=== PATIENT | male | born 1930 | race Caucasian/White ===

== ENCOUNTER 2018-07-19 15:43 | Emergency (ER) ==
[2018-07-19 15:47] VITALS: TEMP 99.3
[2018-07-19] MEDS ORDERED: TRANDATE 100 MG in SODIUM CHLORIDE 80 ML IV SCH (16:00)
--- NOTE | 2018-07-19 16:01 | ED.PDOC ---
General Stated Complaint: Headache-Lt Temporal Mandibular region.Denies visual abnormalities Time Seen by Physician: 16:05 Mode of Arrival: Walk-In Information Source: Patient Exam Limitations: No limitations Nursing and Triage Documentation Reviewed and Agree: Yes Does patient meet sepsis criteria?: No System Inflammatory Response Syndrome: Not Applicable <MYNOR SHORT - Last Filed: 07/19/18 19:28> <ALBINA MITCHELL - Last Filed: 07/19/18 20:01> ED Provider: Dr. ALBINA MITCHELL Chief Complaint: Headache Sepsis Protocol: For patient's 13 years and over: Temp is 96.8 and below OR 101 and greater Pulse >90 BPM Resp >20/minute Acutely Altered Mental Status Are patient's symptoms suggestive of a new infection, such as: -Pneumonia -Skin, Soft Tissue -Endocarditis -UTI -Bone, Joint Infection -Implantable Device -Acute Abdominal Infection -Wound Infection -Meningitis -Blood Stream Catheter Infection -Unknown Cardiovascular Complaint Exam - Hypertension Complaint/Exam Onset/Duration: 24 hrs Symptoms Are: Still present Timing: Constant Aggravating: Reports: Exertion Alleviating: Reports: None Associated Signs and Symptoms: Reports: Headache Related History: Reports: Similar episode Related Surgical History: Reports: None Cardiac Risk Factors: Reports: Hypertension Recent Change in Medications: No Carotid Bruit Present: No Femoral Pulses Bounding: No Differential Diagnoses: Hypertensive Urgency <MYNOR SHORT - Last Filed: 07/19/18 19:28> - Chest Pain Complaint/Exam Duration: today Symptoms Are: Resolved Timing: Intermittent Length of Chest Pain Episodes: several hours improved with optimization of blood pressure Initial Severity: Moderate Current Severity: None Location: Reports: Lower sternal Pain Radiates: Reports: Epigastrium Character: Reports: Aching Aggravating: Reports: None Alleviating: Reports: Rest, Upright position Related Surgical History: Reports: None History of Healthcare-Acquired Pneumonia: Reports: No AMI/ACS Risk Factors: Reports: Hypertension TAD Risk Factors: Reports: Hypertension Pulmonary Embolism Risk Factors: Reports: None Prior Care for this Complaint: No Recent Stress Test: No Recent Echo/LV Function: No JVD Present: No Subcutaneous Emphysema Present: No Diminshed Breath Sounds: No Reproducible Chest Wall Pain: No Bilateral Pulses Present: No Unequal Pulses Noted: No If Risk Factors for AMI/ACS Consider: EKG, Cardiac Enzymes If Risk Factors for TAD Consider: Blood pressure control Documents Reviewed: EKG Differential Diagnoses: Stable Angina, Chest Wall Pain, Lower Resp. Infection Quality Indicator For Non-Traumatic Chest Pain/Syncope: EKG Performed Patient Advised to Stop Smoking: Yes <ALBINA MITCHELL - Last Filed: 07/19/18 20:01> Review of Systems - Review Of Systems Constitutional: Reports: No symptoms Eyes: Reports: No symptoms Ears, Nose, Mouth, Throat: Reports: No symptoms Respiratory: Reports: No symptoms Cardiac: Reports: No symptoms GI: Reports: No symptoms : Reports: No symptoms Musculoskeletal: Reports: No symptoms Skin: Reports: No symptoms, Dryness Neurological: Reports: No symptoms, Headache Endocrine: Reports: No symptoms Hematologic/Lymphatic: Reports: No symptoms All Other Systems: Reviewed and Negative <MYNOR SHORT - Last Filed: 07/19/18 19:28> Past Medical History - Past Medical History Previously Healthy: Yes Endocrine: Reports: None Cardiovascular: Reports: None Respiratory: Reports: None Hematological: Reports: None Gastrointestinal: Reports: None Genitourinary: Reports: None Neuro/Psych: Reports: None Musculoskeletal: Reports: None Cancer: Reports: None Other Pertinent Past Medical History: prev took meds several years ago - Surgical History General Surgical History: Reports: None - Family History Family History: Reports: None - Social History Smoking Status: Chews tobacco Hx Substance Use: No Alcohol Screening: None - Immunizations Tetanus Shot up to Date: No <MYNOR SHORT - Last Filed: 07/19/18 19:28> Physical Exam - Physical Exam Appearance: Well-appearing, Well-nourished Ill-appearing: Mild Pain Distress: Mild Eyes: ALIYAH, Conjunctiva pale ENT: Ears normal, Nose normal, Oropharynx normal Neck: Supple Respiratory: Airway patent Cardiovascular: RRR, Pulses normal, No rub, No murmur GI/: Soft, Nontender, No masses, Bowel sounds normal, No Organomegaly Musculoskeletal: Normal strength, ROM intact, No edema, No calf tenderness Skin: Warm, Dry, Normal color Neurological: Sensation intact, Motor intact, Reflexes intact, Cranial nerves intact, Alert, Oriented Psychiatric: Affect appropriate, Mood appropriate <MYNOR SHORT - Last Filed: 07/19/18 19:28> Physician Notification - Case Discussed Physician Notified: ALBINA MITCHELL-discussed case-goal of BP control and discharge Time of Notification: 18:55 (Evening ER Physician ankush mcdonald) Physician Notified: Patient prefers discharge to home if possible <MYNOR SHORT - Last Filed: 07/19/18 19:28> Critical Care Note - Critical Care Note Total Time (mins): 0 <ALBINA MITCHELL - Last Filed: 07/19/18 20:01> Course - Course Hematology/Chemistry: 07/19/18 16:08 07/19/18 16:08 <MYNOR SHORT - Last Filed: 07/19/18 19:28> - Course Hematology/Chemistry: 07/19/18 16:08 07/19/18 16:08 <ALBINA MITCHELL - Last Filed: 07/19/18 20:01> - Course Orders, Labs, Meds: Lab Review 07/19/18 07/19/18 07/19/18 15:55 16:08 16:08 WBC 9.28 RBC 5.35 Hgb 16.5 Hct 49.9 MCV 93.3 MCH 30.8 MCHC 33.1 RDW Coeff of Nawaf 13.1 Plt Count 190 Immature Gran % (Auto) 0.9 Neut % (Auto) 67.9 Lymph % (Auto) 19.4 [place] % (Auto) 9.8 Eos % (Auto) 1.6 Baso % (Auto) 0.4 Immature Gran # (Auto) 0.1 Neut # (Auto) 6.3 Lymph # (Auto) 1.8 [place] # (Auto) 0.9 Eos # (Auto) 0.2 Baso # (Auto) 0.0 ESR 2 Sodium 140.9 Potassium 3.95 Chloride 104.5 Carbon Dioxide 27.1 Anion Gap 13.25 BUN 18.0 Creatinine 1.41 H Estimated GFR (MDRD) 48.00 BUN/Creatinine Ratio 12.76 Glucose 112.0 H Calcium 8.71 Magnesium 1.98 Total Bilirubin 0.38 AST 25.8 ALT 26.0 Alkaline Phosphatase 67.4 Troponin I Total Protein 7.45 Albumin 4.44 Globulin 3.01 Albumin/Globulin Ratio 1.47 07/19/18 16:08 WBC RBC Hgb Hct MCV MCH MCHC RDW Coeff of Nawaf Plt Count Immature Gran % (Auto) Neut % (Auto) Lymph % (Auto) [place] % (Auto) Eos % (Auto) Baso % (Auto) Immature Gran # (Auto) Neut # (Auto) Lymph # (Auto) [place] # (Auto) Eos # (Auto) Baso # (Auto) ESR Sodium Potassium Chloride Carbon Dioxide Anion Gap BUN Creatinine Estimated GFR (MDRD) BUN/Creatinine Ratio Glucose Calcium Magnesium Total Bilirubin AST ALT Alkaline Phosphatase Troponin I < 0.012 Total Protein Albumin Globulin Albumin/Globulin Ratio Orders Category Date Time Status EKG-(ED ONLY) Stat CARDIO 07/19/18 15:57 Completed CBC W/ AUTO DIFF Stat LAB 07/19/18 16:08 Completed CMP [COMPREHENSIVE METABOLIC PANEL] Stat LAB 07/19/18 16:08 Completed ESR Stat LAB 07/19/18 15:55 Completed MAGNESIUM Stat LAB 07/19/18 16:08 Completed TROPONIN I Stat LAB 07/19/18 16:08 Completed 0.9 % Sodium Chloride [Sodium Chloride] 80 ml MEDS 07/19/18 16:00 Active Labetalol HCl [Trandate] 100 mg IV 2 mg/min Acetaminophen [Tylenol] MEDS 07/19/18 17:27 Discontinued 650 mg PO ONCE STA Labetalol HCl [Trandate] MEDS 07/19/18 18:37 Discontinued 100 mg PO ONCE STA CHEST, 2 VIEWS PA & LAT Stat RADS 07/19/18 17:[address] HEAD W/O CONTRAST Stat RADS 07/19/18 17:43 Taken Medications Generic Name Dose Route Start Last Admin Trade Name Freq PRN Reason Stop Dose Admin Labetalol HCl 100 mg/ Sodium 100 mls @ 120 mls/hr 07/19/18 16:00 07/19/18 16: 51 Chloride IV 0 mg/min .Q50M DENISE 0 mls/hr Titration Protocol 2 MG/MIN Discontinued Medications Generic Name Dose Route Start Last Admin Trade Name Freq PRN Reason Stop Dose Admin Acetaminophen 650 mg 07/19/18 17:27 07/19/18 17:34 Tylenol PO 07/19/18 17:28 650 mg ONCE STA Administration Labetalol HCl 100 mg 07/19/18 18:37 07/19/18 18:57 Trandate PO 07/19/18 18:38 100 mg ONCE STA Administration Vital Signs: Temp Pulse Resp BP Pulse Ox 07/19/18 16:51 71 18 148/82 H 07/19/18 16:22 83 18 186/100 H 07/19/18 15:44 99.3 F 86 16 250/109 H 94 L MICHEAL Risk Score: Risk Score Odds of by 30D 0 0.1 (0.1-0.2) 1 0.3 (0.2-0.3) 2 0.4 (0.3-0.5) 3 0.7 (0.6-0.9) 4 1.2 (1.0-1.5) 5 2.2 (1.9-2.6) 6 3.0 (2.5-3.6) 7 4.8 (3.8-6.1) Departure <MYNOR SHORT - Last Filed: 07/19/18 19:28> - Departure Time of Disposition: 19:58 Pt referred to PMD for follow-up: Yes (follow with PCP 3 days take meds and cont.) IPMP verified?: No Disposition Discussed With: Patient <ALBINA MITCHELL - Last Filed: 07/19/18 20:01> - Departure Disposition: HOME SELF-CARE Discharge Problem: Hypertension Instructions: Hypertension (ED) Condition: Good Prescriptions: Labetalol HCl [Trandate] 100 mg PO BID #30 tablet Allergies/Adverse Reactions: Allergies No Known Allergies Allergy (Unverified 07/19/18 15:47) Home Medications: Ambulatory Orders Aspirin [[place] Chewable] 81 mg PO DAILY 07/19/18 Labetalol HCl [Trandate] 100 mg PO BID #30 tablet 07/19/18
[2018-07-19] MEDS ORDERED: TYLENOL PO PRN (16:20)
[2018-07-19 16:52] VITALS: BP 148/82
[2018-07-19] MEDS ORDERED: TYLENOL PO STA (17:27)
[2018-07-19] MEDS ORDERED: TRANDATE PO STA (18:37)
--- NOTE | 2018-07-20 05:24 | DI ---
EXAM: Two-view chest HISTORY: Hypertension COMPARISON: None. FINDINGS: The heart is normal in size. Atherosclerotic changes are seen involving the aortic arch. There are benign granulomatous changes without evidence of active pulmonary disease. IMPRESSION: Benign granulomatous changes without evidence of active pulmonary disease.
--- NOTE | 2018-07-20 05:24 | CT ---
Exam: Head CT. Date: 07/19/2018. Comparison: None. HISTORY: Left-sided facial pain. TECHNIQUE: Helical scan of the brain was performed. FINDINGS: The calvarium is intact. There is opacification of the left maxillary sinus and multiple bilateral ethmoid air cells. Remaining paranasal sinuses and mastoid air cells are clear. There is mild cerebral and cerebellar volume loss with decreased attenuation in the periventricular w griselda matter. No abnormal intra or extra-axial fluid, mass or mass effect is present. There is no mi dline shift or hydrocephalus. No large vessel infarct or hemorrhage is observed. Bui-white interfa ce is maintained. Impression: No acute intracranial findings. Senescent changes with chronic microvascular disease. Opacification of the left maxillary sinus and multiple ethmoid air cells which could represent acute and/or chronic pansinusitis.
== END 2018-07-19 20:12 | disposition home or self-care (01) ==
LOC: ED 15:43
DX: R51 Headache (principal); I10 Essential (primary) hypertension; Z72.0 Tobacco use
CPT/HCPCS: 36415; 80053; 83735; 84484; 85025; 85651; 93005; 93010; 96365; 99284

== ENCOUNTER 2018-07-30 12:00 | Outpatient (CLI) | payer OTHER | END 2018-07-30 12:01 | disposition home or self-care (01) | LOC: LAB 12:00 | PROVIDERS: ATTEND Ophthalmology | DX: M31.6 Other giant cell arteritis (principal) | CPT/HCPCS: 36415; 85651; 86140 ==

== ENCOUNTER 2018-09-28 15:22 | Inpatient (IN) ==
[2018-09-28] MEDS ORDERED: ATROPINE SULFATE PFS IVP PRN (15:39)
[2018-09-28] MEDS ORDERED: NITROSTAT SL PRN (15:39)
[2018-09-28] MEDS ORDERED: TYLENOL PO PRN (15:39)
[2018-09-28] MEDS ORDERED: VISTARIL INJ IM PRN (15:39)
[2018-09-28 15:57] VITALS: BMI 31.0
[2018-09-28] MEDS ORDERED: BACTROBAN OINTMENT 1 GRAM APPLICATOR (ER) TP SCH (16:00)
--- NOTE | 2018-09-28 16:49 | DI ---
EXAM: CHEST FRONTAL VIEW HISTORY: EXAM: CHEST FRONTAL VIEW HISTORY: Shortness breath. COMPARISON: 07/19/2018 FINDINGS: Mild cardiac enlargement is stable. There is at least mild atherosclerotic disease. Dede ot exclude subtle central vascular congestion. No noticeable interstitial edema, consolidated pneumo emerita, pneumothorax or pleural fluid IMPRESSION: 1. Mildly prominent heart size. Possible subtle vascular congestion.
--- NOTE | 2018-09-28 17:20 | US ---
Exam: Bilateral renal ultrasound Technique: Real time mark-scale and color-flow Doppler ultrasound of the bilateral kidneys and urinar y bladder was performed HISTORY: Hypertension COMPARISON: None. FINDINGS: The right kidney measures 10.5 x 5.2 x 4.2 cm and the left kidney measures 10.8 x 5.8 x 4.3 cm. Kidne ys demonstrate diffusely increased echotexture bilaterally. There are no stones and there is no hydr onephrosis. No suspicious renal masses are seen. There is a 1-2 cm cyst seen in the left kidney. Blo od flow appears normal. Cortical thickness on the right is 0.8 cm and on the left 0.9 cm. Cortical m edullary differentiation is within normal limits. The bladder is unremarkable. Ureteral jets are not seen. Bladder wall thickness is 0.5 cm. IMPRESSION: 1. Bilaterally increased echotexture of the kidneys consistent with medical renal disease. 2. Left renal cyst.
--- NOTE | 2018-09-28 17:23 | US ---
Exam: Bui-scale and color Doppler duplex ultrasonographic evaluation of the carotid arteries. Spec tral waveform analysis. Comparison: None available. Reason for exam: High blood pressure with headache. FINDINGS: Atherosclerotic disease is seen in both the left and right internal carotid arteries. Right ECA measures 178 cm/sec Right CCA 60 cm/sec Right internal carotid artery peak systolic velocity 110 cm/sec. Right internal carotid artery/CCA PSV ratio 1.8 Internal carotid artery end-diastolic velocity 27 cm/sec. There is antegrade right vertebral artery flow. Left ECA 120 cm/sec Left CCA 69 cm/sec Left internal carotid artery peak systolic velocity 83 cm/sec. Left internal carotid artery/CCA PSV ratio 1.2 Left internal carotid artery end-diastolic velocity 19 cm/sec. There is antegrade left vertebral artery flow. Impression: No ultrasonographic evidence of significant stenotic disease is seen by peak systolic velocity measur ements in either the right or left internal carotid arteries. Vertebral artery flow is antegrade bilaterally.
[2018-09-28] MEDS: BACTROBAN TP SCH ×2 (17:39→21:05)
--- NOTE | 2018-09-28 17:39 | CT ---
EXAM: CT scan brain without contrast HISTORY: Headache COMPARISON: CT scan brain 07/19/2018 FINDINGS: Contiguous axial images obtained from skull base to the convexities without contrast utili zing 5-mm collimation. Sagittal and coronal reconstructions were imaged and reviewed. The ventricle s and CSF spaces are prominent compatible with age appropriate atrophy. There is periventricular hyp odensity noted compatible with chronic microvascular disease. . Atherosclerotic changes are seen involving the bilateral vertebral and cavernous internal carotid arteries. Redemonstrated is opacification of the left maxillary sinus. Also redemonstrated is opaci fication of ethmoid air cells left greater than right. New opacification is seen within the left fro ntal sinus. Impression: No acute intracranial findings. Worsening sinusitis
[2018-09-28] MEDS: TOBREX 0.3% OP SCH ×2 (17:40→21:04)
[2018-09-28] MEDS: CLEOCIN PO SCH ×2 (17:40→21:05)
[2018-09-28] MEDS: TRANDATE PO SCH (21:05)
[2018-09-28] MEDS: NORVASC PO SCH (21:05)
[2018-09-29] MEDS: TOBREX 0.3% OP SCH ×3 (09:29→20:36)
[2018-09-29] MEDS: BACTROBAN TP SCH ×2 (09:29→20:38)
[2018-09-29] MEDS: ASPIRIN EC PO SCH (09:30)
[2018-09-29] MEDS: TRANDATE PO SCH ×2 (09:30→20:35)
[2018-09-29] MEDS: CLEOCIN PO SCH ×3 (09:30→20:35)
[2018-09-29] MEDS: PRAVACHOL PO SCH (09:30)
[2018-09-29] MEDS: COZAAR PO SCH (09:31)
[2018-09-29] MEDS: NORVASC PO SCH (20:36)
[2018-09-30] MEDS: PRAVACHOL PO SCH (08:47)
[2018-09-30] MEDS: ASPIRIN EC PO SCH (08:47)
[2018-09-30] MEDS: TOBREX 0.3% OP SCH ×3 (08:47→21:23)
[2018-09-30] MEDS: TRANDATE PO SCH ×2 (08:47→21:22)
[2018-09-30] MEDS: COZAAR PO SCH (08:48)
[2018-09-30] MEDS: CLEOCIN PO SCH ×3 (08:48→21:23)
[2018-09-30] MEDS: BACTROBAN TP SCH ×2 (08:48→21:23)
[2018-09-30] MEDS: NORVASC PO SCH (21:23)
[2018-10-01 04:49] VITALS: BP 129/78; TEMP 97.8
[2018-10-01] MEDS: TOBREX 0.3% OP SCH (08:55)
[2018-10-01] MEDS: ASPIRIN EC PO SCH (08:56)
[2018-10-01] MEDS: BACTROBAN TP SCH (08:56)
[2018-10-01] MEDS: CLEOCIN PO SCH (08:56)
[2018-10-01] MEDS: TRANDATE PO SCH (08:57)
[2018-10-01] MEDS: COZAAR PO SCH (08:57)
[2018-10-01] MEDS: PRAVACHOL PO SCH (08:57)
[2018-10-01] MEDS ORDERED: HYDROCHLOROTHIAZIDE PO SCH (09:00)
--- NOTE | 2018-10-01 09:10 | PCM.PROG ---
Attending Provider: ATTENDING PROVIDER: Dr. ANDIE PAREDES This patient is seen with Ayse Aguiar, Nurse Practitioner. DATE OF SERVICE: 10/01/18 SUBJECTIVE: This 87 year old WHITE/ M was hospitalized 09/28/18. The patient is laying in bed resting comfortably. Blood pressure has beem well-controlled in a controlled environment. No significant abnormality on renal ultrasound. Carotid scan normal. Dr. Paredes did an echocardiogram yesterday. REVIEW OF SYSTEMS: CONSTITUTIONAL: No night sweats. No fatigue, malaise, lethargy. No fever or chills. HEENT: Eyes: No visual changes. No eye pain. No eye discharge. ENT: No runny nose. No epistaxis. No sinus pain. No odynophagia. No congestion. RESPIRATORY: No cough, no congestion. No hemoptysis. No shortness of breath. CARDIOVASCULAR: No angina symptoms. No CHF symptoms. No atypical chest pain for CAD. No palpitations. No orthopnea.. GASTROINTESTINAL: No abdominal pain. No nausea or vomiting. No diarrhea or constipation. No hematemesis. No hematochezia. GENITOURINARY: No urgency. No frequency. No dysuria. No hematuria. No obstructive symptoms. No discharge. No pain. No significant abnormal bleeding. MUSCULOSKELETAL: No musculoskeletal pain; no joint swelling. NEUROLOGICAL: Awake, alert, oriented to time, place and person. No headache. No neck pain. No syncope. No seizures. No dizziness. PSYCHIATRIC: Not anxious. No depression. No suicidal thoughts. No homicidal thoughts. SKIN: No rash. No lesions. No wounds. ENDOCRINE: No unexplained weight loss. No weight gain. HEMATOLOGIC/LYMPHATIC: No anemia. No purpura. No petechiae. No prolonged or excessive bleeding. No palpable lymph nodes. PHYSICAL EXAMINATION: GENERAL: The patient is awake, alert and oriented, lying/sitting in bed in no distress. VITAL SIGNS: Temperature 97.8 F, Pulse 54, Respiratory Rate 16, BP 129/78, Pulse Ox 94% HEENT: Head normocephalic, atraumatic. Eyes: Extraocular muscles are intact. Pupils are equal, round and reactive to light and accommodation. Ears: No lesions. Nose appeared normal. Throat: No exudate or erythema. NECK: Supple. No JVD, no carotid bruit. No lymphadenopathy or thyromegaly. LUNGS: Diminished breath sounds. Clear to auscultation. Percussion note normal. Chest symmetrical. HEART: S1, S2, no S3. No murmurs. No cyanosis or clubbing. No ascites. Pulses: Dorsalis pedis and posterior tibial pulses +1 to +2 both sides. ABDOMEN: Soft. Non-tender. Bowel sounds active. No CVA tenderness. No mass felt. EXTREMITIES: No edema. Full range of motion of all extremities, equal. NEUROLOGIC: No focal deficit. Cranial nerves II through XII are grossly intact. No headache, no double vision or headache. SKIN: Not dry. Intact. Turgor-normal. LYMPHATIC: No palpable lymph nodes/no lymphedema. MUSCULOSKELETAL: Normal joints with no swelling. Muscle tone is normal. LAB REVIEW: 10/01/18 04:40 10/01/18 04:40 10/01/18 04:40: Sodium 141.0, Potassium 4.26, Chloride 106.9, Carbon Dioxide 26.1, Anion Gap 12.26, BUN 20.0, Creatinine 1.17 H, Estimated GFR (MDRD) 59.00, BUN/Creatinine Ratio 17.09, Glucose 99.4, Calcium 8.24 L, Total Bilirubin 0.56, AST 23.1, ALT 16.3, Alkaline Phosphatase 58.5, Total Protein 6.22 L, Albumin 3.28 L, Globulin 2.94, Albumin/Globulin Ratio 1.11 10/01/18 04:40: WBC 9.51, RBC 4.52 L, Hgb 13.9 L, Hct 42.2, MCV 93.4, MCH 30.8, MCHC 32.9, RDW Coeff of Nawaf 12.5, Plt Count 201, Immature Gran % (Auto) 1.1, Neut % (Auto) 69.2, Lymph % (Auto) 16.0, [place] % (Auto) 9.9, Eos % (Auto) 3.2, Baso % (Auto) 0.6, Immature Gran # (Auto) 0.1, Neut # (Auto) 6.6, Lymph # (Auto ) 1.5, [place] # (Auto) 0.9, Eos # (Auto) 0.3, Baso # (Auto) 0.1 ASSESSMENT: Please see below. 1. Hypertension 2. Chronic sinusitis left maxillary 3. Chronic kidney disease, Stage 3 PLAN: 1. D/C home today. 2. Add Hydrochlorothiazide to the Cozaar 100/12.5 mg. 3. Discuss medication compliance at home. Plan and coordination of the patient's care discussed in the presence of Club Waiter/Waitress and nurse. CONDITION: Stable SCRIBED BY: ITZEL PEPPER [employer] Press Operator scribed while in presence of service performed by Dr. Paredes/Ayse Aguiar APRN on 10/01/18 ([id number])
--- NOTE | 2018-10-01 11:09 | ECHO2D ---
Date of Exam: 09/30/18 Ordering Physician: DR. ANDIE PAREDES Room #: 121 Reason for Echo: HYPERTENSION M-Mode Normal Adult Results LV Dimensions Normal Adult Results AoV Opening excursions >1.6 >1.6 LVEDD-base- 3.5-5.8 4.7 Ao root dimensions 2.0-3.7 3.7 LVESD-base- 3.1-4.6 L. Atrium dimensions 1.9-3.8 4.3 Post. Wall thickness 0.8-1.1 1.4 IV septum (thickness) 0.7-1.2 1.3 Post. Wall excursion 0.72-1.3 NORMAL Septal motion NORMAL Systolic motion R. Ventricular cavity 1.5-2.0 NORMAL LVEF 60% 56% Paradoxical septal wall motion NORMAL 2-D : 2-D M Mode Echocardiogram was performed using apical four chamber and left parasternal long and short axis views. Mitral, tricuspid and aortic valves appear to be normal. Contractility of the left ventricle seems to be normal, so is the cavity size. ENLARGED LEFT ATRIAL CAVITY. Aortic root appears to be normal. There is no pericardial effusion. There is no thrombus noted in the left ventricular or left aortic cavity. No mitral valve prolapse noted. M-MODE: MV: NORMAL AV: NORMAL TV: NORMAL PV: CHAMBER SIZE: ENLARGED LEFT ATRIAL CAVITY WALL MOTION: NORMAL PERICARDIUM: NORMAL INTERPRETATION: 1. LEFT VENTRICULAR HYPERTROPHY WITH ENLARGED LEFT ATRIAL CAVITY 2. NORMAL LEFT VENTRICULAR CONTRACTILITY 3. NORMAL VALVES MTDD
[2018-10-01] MEDS ORDERED: ROCEPHIN 1 GM VIAL IM STA (12:24)
[2018-10-01] MEDS ORDERED: LIDOCAINE HCL 1% SDV SUBCUT STA (12:35)
--- NOTE | 2018-10-01 13:37 | CM.DICTOOL ---
ADMISSION: 09/28/18 15:22 DISCHARGE: OCTOBER 01, 2018 DATE OF SERVICE: 10/01/18 FINAL DIAGNOSIS HTN CHRONIC SINUSITIS, LEFT MAXILLARY MARLOW CKD, STAGE 3 DYSLIPIDEMIA LEFT OCCIPITAL PAIN SEES DR. GRISSOM VIT. B12 DEFICIENCY FOLLICULITIS, LEFT ARM APPENDECTOMY HEMORRHOIDECTOMY ECHO 09/30/18: LEFT VENTRICULAR HYPERTROPHY, NORMAL LEFT VENTRICULAR CONTRACTILITY, NORMAL VALVES LVEF 56% SMOKER - CIGARS LAST VITALS Temp Pulse Resp BP Pulse Ox 97.8 F 54 L 16 129/78 94 L 10/01/18 04:48 10/01/18 04:48 10/01/18 08:00 10/01/18 04:48 10/01/18 04:48 TAKE THESE MEDICATIONS AT HOME Amlodipine Besylate (Norvasc) 5 mg PO BEDTIME [facility] Last Admin: 09/30/18 21:23 Dose: 5 mg Aspirin (Aspirin Ec) 81 mg PO DAILYWM [facility] Last Admin: 10/01/18 08:56 Dose: 81 mg Clindamycin HCl (Cleocin) 300 mg PO TID [facility] Stop: 10/01/18 15:59 Last Admin: 10/01/18 08:56 Dose: 150 mg Hydrochlorothiazide (Hydrochlorothiazide) 12.5 mg PO DAILY [facility] Last Admin: 10/01/18 08:57 Dose: 12.5 mg Labetalol HCl (Trandate) 100 mg PO BID [facility] Last Admin: 10/01/18 08:57 Dose: 100 mg Losartan Potassium (Cozaar) 100 mg PO DAILY [facility] Last Admin: 10/01/18 08:57 Dose: 100 mg Mupirocin (Bactroban) 1 applic TP BID [facility] Stop: 10/01/18 16:59 Last Admin: 10/01/18 08:56 Dose: 1 applic Pravastatin Sodium (Pravachol) 40 mg PO DAILY [facility] Last Admin: 10/01/18 08:57 Dose: 40 mg Nasonex 2 sprays each nostril Daily Last Admin: n/a ALLERGIES No Known Allergies Allergy (Unverified 07/19/18 15:47) DISCONTINUED MEDICATIONS NONE NEW PRESCRIPTIONS: CLEOCIN 300 MG PO TID FOR SEVEN DAYS HYDROCHLOROTHIAZIDE 12.5 MG PO ONCE A DAY NASONEX 2 SPRAYS EACH NOSTRIL ONCE A DAY BACTROBAN APPLY TO AFFECTED AREA TWICE A DAY SMOKING: SMOKER DISEASE SPECIFIC EDUCATION: HYPERTENSION SINUSITIS KEFLEX HYDROCHLOROTHIAZIDE MEDICATION COMPLIANCE FOLLOW UP APPOINTMENT LAB REVIEW: 10/01/18 04:40 10/01/18 04:40 10/01/18 04:40: Sodium 141.0, Potassium 4.26, Chloride 106.9, Carbon Dioxide 26.1, Anion Gap 12.26, BUN 20.0, Creatinine 1.17 H, Estimated GFR (MDRD) 59.00, BUN/Creatinine Ratio 17.09, Glucose 99.4, Calcium 8.24 L, Total Bilirubin 0.56, AST 23.1, ALT 16.3, Alkaline Phosphatase 58.5, Total Protein 6.22 L, Albumin 3.28 L, Globulin 2.94, Albumin/Globulin Ratio 1.11 10/01/18 04:40: WBC 9.51, RBC 4.52 L, Hgb 13.9 L, Hct 42.2, MCV 93.4, MCH 30.8, MCHC 32.9, RDW Coeff of Nawaf 12.5, Plt Count 201, Immature Gran % (Auto) 1.1, Neut % (Auto) 69.2, Lymph % (Auto) 16.0, [place] % (Auto) 9.9, Eos % (Auto) 3.2, Baso % (Auto) 0.6, Immature Gran # (Auto) 0.1, Neut # (Auto) 6.6, Lymph # (Auto ) 1.5, [place] # (Auto) 0.9, Eos # (Auto) 0.3, Baso # (Auto) 0.1 PLAN: DISCHARGE HOME TODAY OCTOBER 01, 2018 DIET: REGULAR ACTIVITY: UP TOLERATED FOLLOW UP WITH DR. ZULETA/NASREEN CUNNINGHAM APRN ON TUESDAY OCTOBER 09, 2018 AT 1045 AM. PLEASE CALL TO RESCHEDULE IF UNABLE TO KEEP. CODE STATUS: DNR ALERT, ORIENTED X3. [place]. HE CURRENTLY RESIDES AT [facility]. MR. BROOKS AND FAMILY IS AGREEABLE WITH DISCHARGE HOME TODAY. HE IS INDEPENDENT WITH ADL' S. HE USES A STRAIGHT CAN TO ASSIST IN SAFE AMBULATION. HE DENIES HEADACHE. APPETITE HAS BEEN GOOD. HYDRATION STATUS IS ADEQUATE. LAST BM 09/30. SKIN IS INTACT. SMALL BOIL TO RIGHT ANTECUBITAL AREA IS HEALING. Edin Zuleta M.D. Nasreen Cunningham APRN
--- NOTE | 2018-10-02 10:44 | PN ---
DATE OF SERVICE: 09/28/18 SUBJECTIVE: The patient was seen and examined with Nurse Practitioner and hospitalized with fluctuations in blood pressures ranging from 200/100 to 140/70. The patient is short of breath on exertion but no chest discomfort, chest pain or symptoms of coronary insufficiency. The patient has been tried on several hypertensive medications component of noncompliance exists. The patient's overall condition is stable. TIME SPENT: More than 30 minutes. Plan and coordination of the patient's care discussed in the presence of nurse. JI
--- NOTE | 2018-10-03 11:08 | HP ---
DATE OF SERVICE: 09/28/18 HISTORY OF PRESENT ILLNESS: 87-year-old male with red lesions on right arm. Blood pressure is still high. Left eye is red. PAST MEDICAL HISTORY: History of hypertension. Chronic kidney disease Stage 3. Dyslipidemia. PAST SURGICAL HISTORY: Appendectomy Hemorrhoidectomy. REVIEW OF SYSTEMS: CONSTITUTIONAL: Fatigue. No fever. HEENT: No sinus drainage, no sore throat. RESPIRATORY: No cough, no congestion. CARDIOVASCULAR: No atypical chest pain for coronary artery disease. No angina , CHF symptoms, palpitations or shortness of breath. GASTROINTESTINAL: No melena or abdominal pain. No GERD. GENITOURINARY: No hematuria, no prostatism, no polyuria. JAVA WEB ARCHITECT: No blackout, no dizziness, no headache, no double vision. MUSCULOSKELETAL: Osteoarthritis pain. ENDOCRINE: No weight loss, no weight gain. SKIN: Not dry, no rash. PSYCHIATRIC: Not anxious, no depression, no suicidal thoughts, no homicidal thoughts. SOCIAL HISTORY: Smokes cigars one pack per day - quit 20 years ago. Chews every once in awhile. . No alcohol use. Occupation: [employer]. Two children. FAMILY HISTORY: Father and mother . MEDICATIONS: Labetalol 100 mg b.i.d. ASA 81 mg daily Vitamin E daily Pravachol 40 mg one daily Losartan 100 mg daily Norvasc 5 mg q.h.s. ALLERGIES: NKDA PHYSICAL EXAMINATION: V/S: Pulse 84, BP 190/84, 02 sat 93%, weight 197.4, height 5'4", BMI 33.9. GENERAL APPEARANCE: Oriented times three. HEENT: Normal. NECK: No JVP, no bruits. RESPIRATORY: Lungs are clear. CARDIOVASCULAR: S1, S2, no S3, no murmurs. No cyanosis, clubbing. No ascites. GI/ABDOMEN: No tenderness. Bowel sounds are active. EXTREMITIES: Trace edema, pulses +1, equal. JAVA WEB ARCHITECT: Deep tendon reflexes, sensory, motor and gait all normal. RECTAL/PROSTATE: Colonoscopy 10-12 years ago, had had twice five years prior. The patient refused repeat. ASSESSMENT: 1. Hypertensive urgency. 2. Headache. 3. Folliculitis right arm. 4. Hypertension. 5. Chronic kidney disease Stage 3, no NSAID. 6. Cigar smoker. 7. Left occipital pain - sees Dr. Garcia 8. Headaches. 9. History of sinusitis. 10. Dyslipidemia. 11. B12 deficiency. PLAN: 1. Admit with routine telemetry orders. 2. CBC, CMP now and daily. 3. Continue home medications. 4. 2D Echocardiogram. 5. Renal ultrasound with doppler. 6. Carotid scan bilateral. 7. Chest x-ray. 8. UA. 9. Clindamycin 150 mg p.o. t.i.d. 10. Bactroban b.i.d. to right arm. 11. T4, TSH. 12. Tobramycin eye drops, two drops t.i.d. to left eye. 13. CT scan of head with and without. TIME SPENT: More than 70 minutes. JI
--- NOTE | 2018-10-03 11:23 | PN ---
DATE OF SERVICE: 09/29/18 SUBJECTIVE: 87-year-old white male hospitalized with severe hypertension which is labile. The patient was mildly short of breath. REVIEW OF SYSTEMS: CONSTITUTIONAL: No night sweats. No fatigue, malaise, lethargy. No fever or chills. HEENT: Eyes: No visual changes. No eye pain. No eye discharge. ENT: No runny nose. No epistaxis. No sinus pain. No sore throat. No odynophagia. No congestion. RESPIRATORY: No cough, no congestion. No hemoptysis. No shortness of breath. CARDIOVASCULAR: No angina symptoms. No CHF symptoms. No atypical chest pain for CAD. No palpitations. No PND. No orthopnea. GASTROINTESTINAL: No abdominal pain. No nausea or vomiting. No diarrhea or constipation. No hematemesis. No hematochezia. GENITOURINARY: No urgency. No frequency. No dysuria. No hematuria. No obstructive symptoms. No discharge. No pain. No significant abnormal bleeding. MUSCULOSKELETAL: No musculoskeletal pain; no joint swelling. NEUROLOGICAL: No headache. No neck pain. No syncope. No seizures. No dizziness. PSYCHIATRIC: Not anxious. No depression. No suicidal thoughts. No homicidal thoughts. SKIN: No rash. No lesions. No wounds. ENDOCRINE: No unexplained weight loss. No weight gain. HEMATOLOGIC/LYMPHATIC: No anemia. No purpura. No petechiae. No prolonged or excessive bleeding. No palpable lymph nodes. PHYSICAL EXAMINATION: VITAL SIGNS: Temperature 98, pulse 57, respiratory rate 19, blood pressure 132/ 65, pulse ox 94%. HEENT: Head normocephalic, atraumatic. Eyes: Extraocular muscles are intact. Pupils are equal, round and reactive to light and accommodation. Ears: No lesions. Nose appeared normal. Throat: No exudate or erythema. NECK: Supple. No JVD, no carotid bruit. No lymphadenopathy or thyromegaly. LUNGS: Decreased breath sounds but clear to auscultation. Percussion note normal. Chest symmetrical. HEART: S1, S2, no S3. No murmurs. No cyanosis or clubbing. No ascites. Pulses: Dorsalis pedis and posterior tibial pulses +1 to +2 bilaterally. ABDOMEN: Soft. Nontender. Bowel sounds active. No CVA tenderness. No mass felt. EXTREMITIES: No edema. Full range of motion of all extremities, equal. NEUROLOGIC: No focal deficit. Cranial nerves II through XII are grossly intact. No headache, no double vision or headache. SKIN: Not dry. Intact. Turgor - normal. LYMPHATIC: No palpable lymph nodes/no lymphedema. MUSCULOSKELETAL: Normal joints with no swelling. Muscle tone is normal. LABS: Hemoglobin 13.8, hematocrit 42, WBC 9,100, normal differential. Creatinine 1.1, BUN 22, potassium 4. ASSESSMENT: 1. Severe hypertension. PLAN: The patient has been on the same medication practically. Advised to take his medication on a regular basis, Labetalol 100 mg twice a day discussed along with his Cozaar and Amlodipine to be taken at night. The patient will have an echo tomorrow. Also will have ultrasound Doppler with color flow tomorrow to rule out renal artery stenosis. TIME SPENT: More than 30 minutes. Plan and coordination of the patient's care discussed in the presence of nurse. JI
--- NOTE | 2018-10-03 13:11 | PN ---
DATE OF SERVICE: 09/30/18 SUBJECTIVE: The patient was seen and examined today 09/30/18. The patient is hospitalized with hypertension. Headache has subsided. REVIEW OF SYSTEMS: CONSTITUTIONAL: He is feeling a lot better. No night sweats. No fatigue, malaise , lethargy. No fever or chills. HEENT: Eyes: No visual changes. No eye pain. No eye discharge. ENT: No runny nose. No epistaxis. No sinus pain. No sore throat. No odynophagia. No congestion. RESPIRATORY: No cough, no congestion. No hemoptysis. No shortness of breath. CARDIOVASCULAR: No angina symptoms. No CHF symptoms. No atypical chest pain for CAD. No palpitations. No PND. No orthopnea. GASTROINTESTINAL: No abdominal pain. No nausea or vomiting. No diarrhea or constipation. No hematemesis. No hematochezia. GENITOURINARY: No urgency. No frequency. No dysuria. No hematuria. No obstructive symptoms. No discharge. No pain. No significant abnormal bleeding. MUSCULOSKELETAL: No musculoskeletal pain; no joint swelling. NEUROLOGICAL: No headache. No neck pain. No syncope. No seizures. No dizziness. PSYCHIATRIC: Not anxious. No depression. No suicidal thoughts. No homicidal thoughts. SKIN: No rash. No lesions. No wounds. ENDOCRINE: No unexplained weight loss. No weight gain. HEMATOLOGIC/LYMPHATIC: No anemia. No purpura. No petechiae. No prolonged or excessive bleeding. No palpable lymph nodes. PHYSICAL EXAMINATION: VITAL SIGNS: Temperature 97.5, pulse 62, respiratory rate 16, blood pressure 134 /70, pulse ox 93%. HEENT: Head normocephalic, atraumatic. Eyes: Extraocular muscles are intact. Pupils are equal, round and reactive to light and accommodation. Ears: No lesions. Nose appeared normal. Throat: No exudate or erythema. NECK: Supple. No JVD, no carotid bruit. No lymphadenopathy or thyromegaly. LUNGS: Decreased breath sounds but clear to auscultation. Percussion note normal. Chest symmetrical. HEART: S1, S2, no S3. No murmurs. No cyanosis or clubbing. No ascites. Pulses: Dorsalis pedis and posterior tibial pulses +1 to +2 bilaterally. ABDOMEN: Soft. Nontender. Bowel sounds active. No CVA tenderness. No mass felt. EXTREMITIES: No edema. Full range of motion of all extremities, equal. NEUROLOGIC: No focal deficit. Cranial nerves II through XII are grossly intact. No headache, no double vision or headache. SKIN: Not dry. Intact. Turgor - normal. LYMPHATIC: No palpable lymph nodes/no lymphedema. MUSCULOSKELETAL: Normal joints with no swelling. Muscle tone is normal. LABS: Hemoglobin 13.8, hematocrit 41, WBC 9,000, normal differential. Creatinine 1.1, BUN 22, potassium 4.1. ASSESSMENT: 1. HYPERTENSION, UNDER CONTROL. QUESTIONABLE BORDERLINE LVH. NORMAL LV CONTRACTILITY. VALVULAR STRUCTURES ARE NORMAL. PLAN: 1. Discussed all the medications in detail. 2. DASH diet discussed. 3. The patient has BMI of 31 - advised to lose some weight. Also advised to cut down on salt intake. 4. Goal blood pressure 135/85 discussed. TIME SPENT: More than 30 minutes. Plan and coordination of the patient's care discussed in the presence of nurse. JI
--- NOTE | 2018-10-15 09:46 | DS ---
DATE OF SERVICE: 10/01/18 FINAL DIAGNOSIS: 1. HTN 2. CHRONIC SINUSITIS, LEFT MAXILLARY 3. MARLOW 4. CKD, STAGE 3 5. DYSLIPIDEMIA 6. LEFT OCCIPITAL PAIN SEES DR. GRISSOM 7. VIT. B12 DEFICIENCY 8. FOLLICULITIS, LEFT ARM 9. APPENDECTOMY 10. HEMORRHOIDECTOMY 11. ECHO 09/30/18: LEFT VENTRICULAR HYPERTROPHY, NORMAL LEFT VENTRICULAR CONTRACTILITY, NORMAL VALVES LVEF 56% 12. SMOKER - CIGARS LAST VITALS Temp Pulse Resp BP Pulse Ox 97.8 F 54 L 16 129/78 94 L 10/01/18 04:48 10/01/18 04:48 10/01/18 08:00 10/01/18 04:48 04:48 DISCHARGE INSTRUCTIONS: FOLLOW UP WITH DR. ZULETA/NASREEN CUNNINGHAM APRN ON TUESDAY OCTOBER 09, 2018 AT 1045 AM. PLEASE CALL TO RESCHEDULE IF UNABLE TO KEEP. MEDICATIONS AT DISCHARGE: Amlodipine Besylate (Norvasc) 5 mg PO BEDTIME [facility] Last Admin: 09/30/18 21:23 Dose: 5 mg Aspirin (Aspirin Ec) 81 mg PO DAILYWM [facility] Last Admin: 10/01/18 08:56 Dose: 81 mg Clindamycin HCl (Cleocin) 300 mg PO TID [facility] Stop: 10/01/18 15:59 Last Admin: 10/01/18 08:56 Dose: 150 mg Hydrochlorothiazide (Hydrochlorothiazide) 12.5 mg PO DAILY [facility] Last Admin: 10/01/18 08:57 Dose: 12.5 mg Labetalol HCl (Trandate) 100 mg PO BID [facility] Last Admin: 10/01/18 08:57 Dose: 100 mg Losartan Potassium (Cozaar) 100 mg PO DAILY [facility] Last Admin: 10/01/18 08:57 Dose: 100 mg Mupirocin (Bactroban) 1 applic TP BID [facility] Stop: 10/01/18 16:59 Last Admin: 10/01/18 08:56 Dose: 1 applic Pravastatin Sodium (Pravachol) 40 mg PO DAILY [facility] Last Admin: 10/01/18 08:57 Dose: 40 mg Nasonex 2 sprays each nostril Daily Last Admin: n/a NEW PRESCRIPTIONS: CLEOCIN 300 MG PO TID FOR SEVEN DAYS HYDROCHLOROTHIAZIDE 12.5 MG PO ONCE A DAY NASONEX 2 SPRAYS EACH NOSTRIL ONCE A DAY BACTROBAN APPLY TO AFFECTED AREA TWICE A DAY DISCONTINUED MEDICATIONS: NONE DIET INSTRUCTIONS: REGULAR ACTIVITY: UP TOLERATED SMOKING: SMOKER DISEASE SPECIFIC EDUCATION: HYPERTENSION SINUSITIS KEFLEX HYDROCHLOROTHIAZIDE MEDICATION COMPLIANCE FOLLOW UP APPOINTMENT HOSPITAL COURSE: This is an 87-year-old white female who had presented to our office on 09/28. He has been having blood pressure issues over the course of the past two months.He was seen in the emergency room initially back in July, blood pressure 200/92, was placed on Labetalol 100 mg b.i.d. Since then has come to the office, has continued to have elevated blood pressure over the past several visits. He had declined any further workup. He has a long history, had not been to the doctor in several years until he went to the emergency room with high blood pressure in July. We added Cozaar 100 mg and added Norvasc 5 mg at night. He presented to the office Monday. Blood pressure was still 180/95. We admitted him for hypertension. He has also had some swelling along the left periorbital area and has had some redness of that left eye. He has been seeing Dr. Grissom. He described pain and headaches in that area. I suspect that he has chronic sinusitis on that side causing redness and pain. We admitted him, did a CT scan of the head which did show left maxillary and frontal sinusitis. We did a renal ultrasound which showed chronic kidney disease, no acute process accounting for blood pressure. Dr. Zuleta performed an echo which showed mild LVH with normal contractility, ejection fraction 56%. He also had a purulent papule on the right antecubital space that could have possibly been Staph. I started him on Clindamycin 300 mg p.o. t.i.d. Also started him on Tobramycin eyedrops two drops t.i.d. to the left eye. Over the course of the past several days, we have not had to change his medication. His blood pressures remained 130/80 or less. Again we did the carotid scan, CT of the head. The redness in his eye has since improved using eyedrops and antibiotics. The lesion on his arm has resolved. Again CT did show chronic sinusitis with swelling on the left side of face and redness has since improved. I am going to give him one dose of IM Rocephin. He is going to continue on the Clindamycin for the next seven days due to the chronic sinusitis. I do believe we may need to finish 14 to 21 day course of antibiotics given the fact that he has had the pain and swelling on the left side. Also started him on Nasonex. I think his blood pressure fluctuation has been persistently high in the office due to the fact that I feel like he is a little forgetful. He is 87 and is living at home by himself still. His daughter- in-law does organise his medicine for him and I do believe he is a little forgetful in taking it so some education has been done. We have discussed medication administration because once in a controlled environment his blood pressure has been well-controlled. Today at time of discharge 129/78. He has been up and about eating well. He is going to be discharged home in stable condition. We will see him in the office next week. Again, his medications have been reviewed. I did add 12.5 mg Hydrochlorothiazide to be combined with his Losartan to be taken in the morning. He will continue Norvasc 5 mg at night and Labetalol 100 mg b.i.d. TIME SPENT: More than 60 minutes. JI
== END 2018-10-01 14:12 | disposition home or self-care (01) | DRG 103 ==
LOC: MEDSURG B 15:22
PROVIDERS: ADMIT Internal Medicine; ATTEND Internal Medicine
DX: E53.8 Deficiency of other specified B group vitamins; E78.5 Hyperlipidemia, unspecified; N18.3 Chronic kidney disease, stage 3 (moderate); R22.0 Localized swelling, mass and lump, head; R51 Headache; I10 Essential (primary) hypertension; L73.9 Follicular disorder, unspecified; J32.9 Chronic sinusitis, unspecified